=== PATIENT | female | born 1985 | race Caucasian/White ===

== ENCOUNTER 2017-05-19 14:07 | Emergency (ER) | payer OTHER ==
[2017-05-19 15:16] VITALS: BP 125/73
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
== END 2017-05-19 17:13 | disposition home or self-care (01) ==
LOC: UCCORT 14:07
DX: S13.9XXA Sprain of joints and ligaments of unspecified parts of neck, initial encounter (principal); Y33.XXXA Other specified events, undetermined intent, initial encounter; Y93.9 Activity, unspecified; Y92.215 Trade school as the place of occurrence of the external cause; Y99.0 Civilian activity done for income or pay; M54.12 Radiculopathy, cervical region; F17.210 Nicotine dependence, cigarettes, uncomplicated
CPT/HCPCS: 72050; 99212; G0463

== ENCOUNTER 2018-08-07 10:49 | Emergency (ER) | payer OTHER ==
[2018-08-07 13:49] VITALS: BP 109/75
--- NOTE | 2018-08-07 14:34 | UC ---
Neck Pain HPI - HPI Summary HPI Summary: 33 y/o female presents to the urgent care c/o c/o lower head pressure that started 2 weeks ago. States lower shoulder,neck, head, and jaw pain that has continued. History of spine problems, and migraines. - History of Current Complaint Chief Complaint: UCHeadache Stated Complaint: MIGRAINE/JAW PAIN Time Seen by Provider: 08/07/18 14:09 Hx Obtained From: Patient Hx Last Menstrual Period: 07/26/18 ?: No Mechanism Of Injury: No Known Trauma Timing: Constant Onset/Duration: Gradual Onset, Lasting Weeks - 2 weeks, Still Present, Worse Since - 2 days Severity: Moderate Pain Intensity: 8 Pain Scale Used: 0-10 Numeric Location: Discrete At: - RT side of neck, Radiates To: - Mid Rt upper back Character: Aching, Spasmotic Aggravating Factors: Movement Alleviating Factors: Massage, OTC Meds Associated Signs & Symptoms: Positive: Headache - temporal headache. Negative: Bruising, Nuchal Rigity, Weakness Related History: Similar Episode/Dx As: - cervical lordosis - Risk Factors Meningitis Risk Factors: Negative - Allergies/Home Medications Allergies/Adverse Reactions: Allergies Allergy/AdvReac Type Severity Reaction Status Date / Time No Known Allergies Allergy Verified 08/07/18 13:42 Home Medications: Home Medications Acetaminophen [Acetaminophen Extra Strength] 1,000 mg PO Q4H PRN 08/07/18 [ History Confirmed 08/07/18] QUEtiapine TAB* [Seroquel 25 MG TAB*] 50 mg PO DAILY 08/07/18 [History Confirmed 08/07/18] PMH/Surg Hx/FS Hx/Imm Hx Previously Healthy: Yes Neurological History: Migraine - Surgical History Surgical History: Yes Surgery Procedure, Year, and Place: C SECTION, RT FOOT, UTERINE SURGERY POLYPS AND FIBROID - Family History Known Family History: Positive: Hypertension, Diabetes Negative: Seizure Disorder - Social History Alcohol Use: Rare Substance Use Type: None Smoking Status (MU): Current Every Day Smoker Type: eCigarettes Amount Used/How Often: daily Length of Time of Smoking/Using Tobacco: 8 Years Have You Smoked in the Last Year: Yes When Did the Patient Quit Smoking/Using Tobacco: 12/15/14 Household Exposure Type: Cigarettes - Immunization History Most Recent Tetanus Shot: within 5 years Physical Exam - Summary Physical Exam Summary: Vital signs:reviewed General: Patient is a well developed female without any distress that is laying comfortably in the examining table w/o any apparent distress. Skin: [place], warm, dry HEAD AND FACE: No signs of trauma. EYES: PERRLA, EOMI x 2. EARS: Hearing grossly intact. MOUTH: Oropharynx within normal limits. NECK: Supple, trachea is midline, no cervical lymphadenopathy, no JVD, no carotid bruit, no c-spine tenderness, neck with decreased ROM on flexion and Rt lateral bending due to pain. No meningeal signs, no Kernig's or brudzinski's signs. Decrease ROM on bending forward and Rt lateral bending due to pain. CHEST: Symmetric, no tenderness at palpation LUNGS: CTA bilaterally, no rales, rhonchi or wheezing CVS: RRR, no murmur, rub, or gallop ABDOMEN: soft and Nontender without masses, no guarding or rebound. Bowel sounds are active. No Hepato-splenomegaly. No signs of inguinal hernias. BACK: Patient walked into the urgent care room with symmetric ambulation, No signs of limping, antalgic, able to bear weight. No signs of trauma, no soft tissue or muscle tenderness, RT side upper back spasm in the Paraspinal muscles of the T3-T4. No masses palpated. Point tenderness at Rt shoulder blade, no swelling or ecchymosis observed, No CVAT, no flank ecchymosis . No sacroiliac notch tenderness, No saddle anesthesia.FROM: flexion/ extension/ lateral bending and rotation, note if limited or causes pain Straight Leg Raise: negative.Patellar reflexes: brisk, symmetric Muscle strength lower extremities. Dorsiflexion/ plantar flexion of ankles. Heel/ toe walk Lower extremities: Femoral, popliteal, posterior tibial, and dorsalis pedis pulses with in normal, Neurological: WNL Psychological: WNL Skin: dry and warm Triage Information Reviewed: Yes Vital Signs: Initial Vital Signs Temp 98.3 F 08/07/18 13:45 Pulse 68 08/07/18 13:45 Resp 14 08/07/18 13:45 BP 109/75 08/07/18 13:45 Pulse Ox 100 08/07/18 13:45 Neck Pain Course/Dx - Differential Dx/Diagnosis Differential Dx/HQI/PQRI: Arthritis, Sprain, Strain, Torticollis, Other - Headache Provider Diagnosis: Spasmodic torticollis, Acute headache, Vomiting Discharge - Sign-Out/Discharge Documenting (check all that apply): Patient Departure - D/C home All imaging exams completed and their final reports reviewed: No Studies - Discharge Plan Condition: Stable Disposition: HOME Prescriptions: Cyclobenzaprine TAB* [Flexeril 10 MG TAB*] 10 mg PO TID PRN #21 tab PRN Reason: Spasms - Neck Naproxen TAB* [Naprosyn 250 mg TAB*] 250 mg PO Q8H PRN #30 tab PRN Reason: Headache Ondansetron ODT TAB* [Zofran 4 MG Odt TAB*] 4 mg PO Q6H PRN #12 tab.odt PRN Reason: Vomiting Patient Education Materials: Spasmodic Torticollis (ED), Acute Headache (ED), Acute Nausea and Vomiting (ED) Forms: *Work Release Referrals: Leif Thomson PA [Primary Care Provider] - 3 Days [facility] [Provider Group] - 1 Week Additional Instructions: 1- Please take Naproxen PO as directed after meals for pain starting tomorrow since you were given Toradol IM inj today to alleviate symptoms. 2- Take Flexeril PO as directed for muscle spasm. Please do not drive while taking the medication. 3- Wear a the soft collar you have at home for comfort. Avoid strenuous exercise or heavy lifting. 4- Take Zofran PO prn to alleviate nausea and vomiting as directed. 5- Take Benadryl PO q6hrs today to alleviate your Headache 6- Please follow up with or your PCP or Orthopedic DR from Sports Medicine if not improvement of symptoms, for further management. - Billing Disposition and Condition Condition: STABLE Disposition: Home
[2018-08-07] MEDS ORDERED: Ketorolac INJ* 30 MG/ML 1 ML VIAL IM ONE (14:35)
[2018-08-07] MEDS ORDERED: Ondansetron ODT TAB* 4 MG PO ONE (14:35)
== END 2018-08-07 15:07 | disposition home or self-care (01) ==
LOC: UCCORT 10:49
DX: M43.6 Torticollis (principal); R51 Headache; R11.10 Vomiting, unspecified; F17.210 Nicotine dependence, cigarettes, uncomplicated
CPT/HCPCS: 96372; 99212; A9270-GY; G0463; J1885

== ENCOUNTER 2018-08-25 14:31 | Emergency (ER) | payer OTHER ==
[2018-08-25 15:05] VITALS: BP 95/70
--- NOTE | 2018-08-25 16:19 | UC ---
UC General HPI - HPI Summary HPI Summary: pt c/o PEDRAZA, body aches, cough and fever x 1 week. son and partner has same s/s's. triage notes sore throat but no sore throat on my hx. no asthma. - History of Current Complaint Chief Complaint: UCRespiratory Stated Complaint: FEVER/CHILLS/SORE THROAT/PEDRAZA Time Seen by Provider: 08/25/18 16:10 Hx Obtained From: Patient Hx Last Menstrual Period: 07/28/19 Timing: Constant Pain Intensity: 5 - Allergy/Home Medications Allergies/Adverse Reactions: Allergies Allergy/AdvReac Type Severity Reaction Status Date / Time No Known Allergies Allergy Verified 08/25/18 15:02 Home Medications: Home Medications Ascorbic Acid TAB* [Vitamin C TAB*] 1,000 mg PO DAILY 08/25/18 [History Confirmed 08/25/18] Dm/Acetaminophen/Doxylamine [Vicks Nyquil Cold & Flu N 15-6.25-325 mg] 2 cap PO Q6H PRN 08/25/18 [History Confirmed 08/25/18] Ibuprofen TAB* [Advil TAB*] 400 - 800 mg PO Q6H PRN 08/25/18 [History Confirmed 08/25/18] PMH/Surg Hx/FS Hx/Imm Hx Previously Healthy: Yes - Surgical History Surgical History: Yes Surgery Procedure, Year, and Place: C SECTION, RT FOOT, UTERINE SURGERY POLYPS AND FIBROID - Family History Known Family History: Positive: Unknown, Hypertension, Diabetes Negative: Seizure Disorder - Social History Lives: With Family Alcohol Use: Rare Substance Use Type: None Smoking Status (MU): Current Every Day Smoker Type: eCigarettsharon Amount Used/How Often: daily Length of Time of Smoking/Using Tobacco: 8 Years Have You Smoked in the Last Year: Yes When Did the Patient Quit Smoking/Using Tobacco: 12/15/14 Household Exposure Type: Cigarettes - Immunization History Most Recent Tetanus Shot: within 5 years Review of Systems All Other Systems Reviewed And Are Negative: Yes Constitutional: Positive: Fever, Fatigue Skin: Positive: Negative Eyes: Positive: Negative ENT: Negative: Sore Throat Respiratory: Negative: Shortness Of Breath Cardiovascular: Positive: Negative Gastrointestinal: Positive: Negative Genitourinary: Positive: Negative Motor: Positive: Negative Neurovascular: Positive: Negative Musculoskeletal: Positive: Myalgia Neurological: Positive: Headache Psychological: Positive: Negative Is Patient Immunocompromised?: No Physical Exam Triage Information Reviewed: Yes Appearance: Well-Appearing Vital Signs: Initial Vital Signs Temp 97.8 F 08/25/18 14:59 Pulse 78 08/25/18 14:59 Resp 15 08/25/18 14:59 BP 95/70 08/25/18 14:59 Pulse Ox 100 08/25/18 14:59 Vital Signs Reviewed: Yes Eyes: Positive: Conjunctiva Clear ENT: Positive: Pharynx normal, TMs normal. Negative: Nasal congestion, Nasal drainage Neck: Positive: Supple, Nontender, No Lymphadenopathy Respiratory: Positive: Lungs clear, Normal breath sounds, No respiratory distress Cardiovascular: Positive: RRR, No Murmur Abdomen Description: Positive: Nontender, No Organomegaly, Soft Bowel Sounds: Positive: Present Musculoskeletal: Positive: ROM Intact Neurological: Positive: Alert Psychological: Positive: Normal Response To Family, Age Appropriate Behavior Skin Exam: Normal Diagnostics - Laboratory Diagnostic Studies Completed/Ordered: rapid flu=negative Course/Dx - Differential Dx - Multi-Symptom Differential Diagnoses: Other - no concern for pneumonia. documented fever goes against CO poisioning. - Diagnoses Provider Diagnosis: Influenza-like illness Discharge - Sign-Out/Discharge Documenting (check all that apply): Patient Departure All imaging exams completed and their final reports reviewed: No Studies - Discharge Plan Condition: Stable Disposition: HOME Patient Education Materials: Influenza (DC) Forms: *Work Release Referrals: Leif Thomson PA [Primary Care Provider] - 5 Days - Billing Disposition and Condition Condition: STABLE Disposition: Home
[2018-08-25 16:39] LABS: Influenza A Molecular NEGATIVE (Negative); Influenza B Molecular NEGATIVE (Negative)
== END 2018-08-25 17:20 | disposition home or self-care (01) ==
LOC: UCCORT 14:31
DX: J11.1 Influenza due to unidentified influenza virus with other respiratory manifestations (principal); F17.210 Nicotine dependence, cigarettes, uncomplicated
CPT/HCPCS: 99211; G0463

== ENCOUNTER 2018-10-17 13:49 | Emergency (ER) | payer OTHER ==
[2018-10-17 14:19] VITALS: BP 119/65
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
== END 2018-10-17 15:40 | disposition home or self-care (01) ==
LOC: UCEAST 13:49
DX: S62.306A Unspecified fracture of fifth metacarpal bone, right hand, initial encounter for closed fracture (principal); X50.9XXA Other and unspecified overexertion or strenuous movements or postures, initial encounter; Y92.218 Other school as the place of occurrence of the external cause; Y99.0 Civilian activity done for income or pay; Z87.891 Personal history of nicotine dependence
CPT/HCPCS: 99211; G0463